=== PATIENT | male | born 1985 | race Caucasian/White ===

== ENCOUNTER 2023-12-10 06:29 | Emergency (ER) | payer SELFPAY ==
[~2023-12-10] VITALS: Ht 167.6 cm; Wt 72.6 kg
[2023-12-10 06:36] VITALS: BP 145/92; PULSE 89; RESP 16; TEMP 97.4; O2SAT 98
== END 2023-12-10 07:11 | disposition home or self-care (01) ==
LOC: MED 06:29
DX: Z02.89 Encounter for other administrative examinations (principal); V89.2XXA Person injured in unspecified motor-vehicle accident, traffic, initial encounter; Y93.89 Activity, other specified; Y92.89 Other specified places as the place of occurrence of the external cause; Y99.8 Other external cause status
CPT/HCPCS: 99283